=== PATIENT | male | born 1970 | race Caucasian/White ===

== ENCOUNTER → 2019-08-27 13:45 | Outpatient (BNVA) | payer BC, SELFPAY | PROVIDERS: Family Provider Nurse Practitioner Family; PCP Nurse Practitioner Family; Referring Provider Nurse Practitioner; Visit Provider Nurse Practitioner | DX: I10 Essential (primary) hypertension (principal) | CPT/HCPCS: 80053 ==

== ENCOUNTER 2020-12-03 05:58 | Day surgery (SDC) | payer BC, SELFPAY ==
[2020-12-01 13:54] VITALS: BMI 34.4
[2020-12-03 06:20] VITALS: BP 112/76; PULSE 65; RESP 16; TEMP 36.2; O2SAT 95
[2020-12-03] MEDS: sodium chloride 0.9% 1,000 ML 30 ML IV (06:30)
--- NOTE | 2020-12-03 06:43 | ANES.PREANE2 ---
Pre-Anesthetic Assessment Pre-Anesthetic Assessment: Height/Weight: Height 1.85 m Weight 118.388 kg Temp Pulse Resp BP Pulse Ox 97.1 F L 65 16 112/76 95 12/03/20 06:20 12/03/20 06:20 12/03/20 06:20 12/03/20 06:20 12/03/20 06:20 Proposed Procedure: Operation Date: 12/03/20 07:00 Proposed Procedures p Colonoscopy 41518 Z12.11(Not Applicable) - Franklin Nelson MD Last intake: Intake Last Liquid Date 12/02/20 Last Liquid Time 22:00 Last Solid Date 12/01/20 Last Solid Time 18:30 Social: Social History: No alcohol and No tobacco Exam: Pre-Anes Outpt Exam: alert and oriented x 3 Airway: Submandibular: WNL Cervical ROM: WNL MP: 2 History/ROS: No significant history except as noted Pulmonary: Pulmonary: Sleep apnea Comments: cpap CV/HEM: CV/HEM: HTN Anesthetic Plan: ASA status: 2 Anesthesia: Anesthesia Evaluation and MAC Risk of > 500 ml blood loss (7ml/kg in children): No Other Pertinent Information: npo since 10 pm Meds/Allergies Current Medications: Current Medications Generic Name Dose Route Start Last Admin Trade Name Freq PRN Reason Stop Dose Admin Sodium Chloride 1,000 mls @ 30 ml s/hr 12/03/20 06:15 12/03/20 06:30 Sodium Chloride 0.9% IV 12/04/20 06:14 30 mls/hr .Q24H JORGE Administration PFSH Anesthesia PFSH: Medical History (Updated 09/30/19 @ 18:08 by KARELY Quinones) Dyslipidemia Environmental and seasonal allergies Hypertension Migraines Surgical History (Updated 09/30/19 @ 16:35 by KARELY Quinones) History of surgery on upper extremity Left Bicep S/P appendectomy S/P hernia repair right inguinal Family History Father Cancer Hypertension Stroke Grandmother Diabetes Stroke Social History Smoking and tobacco status: never smoked Alcohol intake: never History of recent travel: No Data Anesthesia Cardiac Studies: No Data to Display
--- NOTE | 2020-12-03 07:09 | P.HP_ITS ---
Providers/Chief Complaint Primary Care Provider: KARELY Davis Chief Complaint: Colonoscopy History of Present Illness Jake Caldwell is a 49 year old male who presents to the hospital this morning for a screening colonoscopy due to being 49 years old. He has no other risk factors. He does not take any blood thinners. He does not require any antibiotics prior to procedure. Review of Systems General: Reports: 10 or more systems reviewed and unremarkable except in HPI and below Const: Denies: fever(s) Card: Denies: chest pain or irregular heart rhythm Resp: Denies: dyspnea Medications/Allergies Home Medications Medication Instructions Recorded Confirmed Last Taken Type clotrimazole-betamethasone 1 1 applic TOPICAL DAILY PRN gm 09/04/19 12/03/20 Unknown History %-0.05 % topical cream diphenhydramine HCl 25 mg tablet 25 mg PO DAILY PRN tab 09/04/19 12/03/20 12/02/20 History ergocalciferol (vitamin D2) 1,250 1,250 mcg PO .weekly cap 09/04/19 12/03/20 Unknown History mcg (50,000 unit) capsule melatonin 3 mg tablet 3 mg PO DAILY 09/04/19 12/03/20 12/02/20 History naproxen sodium 220 mg tablet 220 mg PO BID PRN 09/04/19 12/03/20 Unknown History [id number] 1 tab PO TID PRN #60 tab 09/30/19 12/03/20 Unknown Rx 50 mg-325 mg-40 mg tablet cetirizine 10 mg tablet 10 mg PO DAILY #90 tab 09/30/19 12/03/20 12/02/20 Rx oxygen-air delivery systems #1 09/30/19 Unknown History metoprolol tartrate 50 mg tablet 50 mg PO BID 30 Days #60 tab NS 11/26/19 12/03/20 12/02/20 Rx Zetia 10 mg tablet 10 mg PO .once daily 30 Days #30 02/10/20 12/03/20 12/02/20 Rx tab NS Allergies Allergy/AdvReac Type Severity Reaction Status Date / Time Sulfa (Sulfonamide Allergy ALGY-Hives Verified 09/30/19 17:50 Antibiotics) PFSH PFSH: Medical History Dyslipidemia Environmental and seasonal allergies Hypertension Migraines Surgical History History of surgery on upper extremity Left Bicep S/P appendectomy S/P hernia repair right inguinal Family History Father Cancer Hypertension Stroke Grandmother Diabetes Stroke Social History Smoking and tobacco status: never smoked Alcohol intake: never History of recent travel: No Dietary Habits: Caffeine: Yes Caffeine intake frequency: carbonated beverages Vital Signs Vitals Signs: Last Vital Signs Temp 97.1 F L 12/03/20 06:20 Pulse 65 12/03/20 06:20 Resp 16 12/03/20 06:20 BP 112/76 12/03/20 06:20 Pulse Ox 95 12/03/20 06:20 Weight: Weight last 48 hrs Weight 261 lb Physical Exam Const: COMMON NORMALS: no acute distress and patient oriented x3 GENERAL APPEARANCE: cooperative, comfortable and well developed HENMT: COMMON NORMALS: normocephalic and moist oral mucous membranes HEAD & SCALP: normocephalic Chest: COMMONS NORMALS: normal inspection of the chest Resp: COMMON NORMALS: normal respiratory effort and clear to auscultation bilaterally AUSCULTATION: clear to auscultation bilaterally Cardio: COMMON NORMALS: regular rate, regular rhythm, No gallops present (Cardio), No murmurs present (Cardio) and No rub (Cardio) RATE: regular rate RHYTHM: regular rhythm Extremity: COMMON NORMALS: normal to inspection Neuro: COMMON NORMALS: patient oriented x3 and no focal motor deficits Skin: COMMON NORMALS: no rashes or lesions noted GENERAL SKIN EXAM: no rashes or lesions noted A&P Assessment and plan (1) Encounter for screening colonoscopy: The patient feels like an appropriate prep last night. We will proceed with a colonoscopy. We did discussed the risks of the procedure including the risks of bleeding, perforation, and sedation previously in my office. We touched on those risks again this morning. The patient and his have no further questions and he wishes to proceed. Status: Acute Coding Level of Care Code Acute Janitorial Assistant for g Fwd Diagnoses Encounter for screening colonoscopy Z12.11
[2020-12-03 07:36] VITALS: BP 94/66; PULSE 59; RESP 18; TEMP 36.1; O2SAT 93
[2020-12-03 07:48] VITALS: BP 94/72; PULSE 59; RESP 18; O2SAT 93
--- NOTE | 2020-12-03 15:40 | ANE.PACU2 ---
Inpatient post-anesthesia follow up: Airway intact: Yes Vital signs: Temperature 97 F Pulse Rate 59 Respiratory Rate 18 Blood Pressure 94/72 Pulse Oximetry 93 Oxygen Delivery Me thod Room Air Oxygen Flow Rate Fraction of Inspir ed Oxygen Hydration adequate: Yes Nausea and vomiting: No Pain level: 1 Mental status: Baseline
== END 2020-12-03 08:03 | disposition home or self-care (01) ==
PROVIDERS: PCP Nurse Practitioner; Visit Provider Family Medicine
PROC: 0DJD8ZZ Inspection of Lower Intestinal Tract, Via Natural or Artificial Opening Endoscopic (ICD-10-PCS; CPT 45378; principal; 2020-12-03 07:00)
DX: Z12.11 Encounter for screening for malignant neoplasm of colon (principal); E78.5 Hyperlipidemia, unspecified; I10 Essential (primary) hypertension; K57.30 Diverticulosis of large intestine without perforation or abscess without bleeding; G47.30 Sleep apnea, unspecified
CPT/HCPCS: 12345; 45378; 96360; 96361; J2704; J7030